=== PATIENT | female | born 1940 | race Caucasian/White ===

== ENCOUNTER 2018-04-19 06:51 | Day surgery (SDC) | payer OTHER ==
[2018-04-19] MEDS ORDERED: SYNTHROID125 MCG PO (10:40)
[2018-04-19] MEDS ORDERED: AMILODIPINE PO (10:40)
[2018-04-19] MEDS ORDERED: AVAPRO300 MG PO (10:41)
[2018-04-19] MEDS ORDERED: ZOCOR20 MG PO (10:41)
[2018-04-19] MEDS ORDERED: METFORMIN HCL500 MG PO (10:42)
[2018-04-19] MEDS ORDERED: CHLORTHALIDONE25 MG PO (10:42)
== END 2018-04-19 17:35 | disposition home or self-care (01) ==
LOC: CIR.AMB 06:51
DX: M47.892 Other spondylosis, cervical region (principal)

== ENCOUNTER 2019-08-25 09:07 | Outpatient (CLI) | payer OTHER ==
[~2019-08-25 09:07] MED LIST: AMILODIPINE PO; AVAPRO300 MG PO; CHLORTHALIDONE25 MG PO; METFORMIN HCL500 MG PO; SYNTHROID125 MCG PO; ZOCOR20 MG PO
== END 2019-08-25 09:09 | disposition home or self-care (01) ==
LOC: SONOGRAMA 09:07
DX: E04.1 Nontoxic single thyroid nodule (principal)